=== PATIENT | male | born 1990 | race Caucasian/White ===

== ENCOUNTER 2016-05-29 21:51 | Emergency (ER) | payer OTHER ==
[2016-05-29 22:10] LABS: BASOPHIL 0.1 % (0-2); EOSINOPHIL 2.3 % (0-5); HCT 44.1 % (42.0-52.0); HGB 15.4 g/dl (13.2-18.0); MCH 30.1 pg (25.0-31.0); MCHC 34.9 g/dL (32.0-36.0); MCV 86.1 fL (78.0-100.0); MONOCYTE 7.5 % (0-12); MPV 10.2 fL (6.0-9.5); NEUTROPHIL 53.1 % (41-80); PLT 195 K/uL (150-400); RBC 5.12 M/uL (4.70-6.00); RDW 12.8 % (11.5-14.0); WBC 11.4 K/uL (4.0-10.5)
[2016-05-29 22:20] LABS: INR 1.04 (0.9-1.2); PROTHROMBIN TIME 13.2 SECONDS (11.7-14.0); PTT 27.8 SECONDS (23.2-31.4)
[2016-05-29 22:21] LABS: D-DIMER 0.41 ug/mLFEU (0.00-0.41)
[2016-05-29 22:28] LABS: CREATININE 1.2 mg/dL (0.7-1.2); POTASSIUM 3.8 mmol/L (3.5-5.1)
[2016-05-29 22:29] LABS: ALBUMIN 4.7 g/dL (3.5-5.0); BILIRUBIN - TOTAL 0.3 mg/dL (0.1-1.0); GLOBULIN (CALCULATION) 2.9 g/dL (2.2-4.2); MAGNESIUM 1.89 mg/dL (1.40-2.10); TOTAL PROTEIN 7.6 g/dL (6.4-8.3)
[2016-05-29 22:36] LABS: MYOGLOBIN 29 ng/mL (26-65); PRO-BNP 5 pg/mL (0-125); TROPONIN T < 0.010 ng/mL
== END 2016-05-30 01:22 | disposition home or self-care (01) ==
LOC: FER 21:51
PROVIDERS: Emergency Medicine Emergency Medical Services
DX: R07.89 Other chest pain (principal)
CPT/HCPCS: 36415; 71010; 80053; 82550; 82553; 83690; 83735; 83874; 83880; 84484; 85025; 85379; 85610; 85730; 93005